=== PATIENT | male | born 1955 | race Caucasian/White ===

== ENCOUNTER 2016-04-06 15:20 | Emergency (ER) | payer MEDICAID ==
--- NOTE | 2016-04-06 15:26 | EDPHY ---
H & P Time Seen by Provider: 04/06/16 15:25 HPI/ROS: CHIEF COMPLAINT: Alcohol intoxication HISTORY OF PRESENT ILLNESS: EMS was called to private residence by the patient' s found him intoxicated after having drunk a lot of vodka. He could walk. On arrival he just admits to feeling bad but no other acute medical complaints. REVIEW OF SYSTEMS: Eye: no change in vision ENT: no sore throat Cardiac: no chest pain or syncope Pulmonary: no cough or SOB Abdomen: Nausea and vomiting earlier, no diarrhea or abdominal pain. Musculoskeletal: no back pain Skin: no rash Neuro: no headache Constitutional: no fever : no urinary symptoms A comprehensive 10 point review of systems is otherwise negative aside from elements mentioned in the history of present illness. PAST MEDICAL HISTORY: H/P dated 03/27/2011 reviewed by myself; includes alcoholism Social history: Recent vodka, General Appearance: Alert and conversant, cooperative. Eyes: No scleral icterus. ENT, Mouth: Normal mucous membranes. Respiratory: Normal respiratory effort, breath sounds equal, lungs are clear to auscultation. Cardiovascular: Regular rate and rhythm. Gastrointestinal: Abdomen is soft and non tender. Neurological: Alert and oriented x3. Slightly slurred speech. Face symmetric, normal movement and sensation in all extremities. Skin: Warm and dry, no rashes. Musculoskeletal: No peripheral edema and no joint swelling. Psychiatric: Not agitated. Tearful, denies suicidal ideation. Emergency Department course/MDM: Clinical presentation consistent with alcohol intoxication and depression. 1620: Ambulatory, no medical complaints, denies suicidal ideation, stable for detox. Smoking Status: Light smoker Constitutional: Initial Vital Signs Temperature (C) 36.7 C 04/06/16 15:28 Heart Rate 102 H 04/06/16 15:28 Respiratory Rate 16 04/06/16 15:28 Blood Pressure 151/94 H 04/06/16 15:28 O2 Sat (%) 96 04/06/16 15:28 O2 Delivery Mode Room Air Allergies/Adverse Reactions: Penicillins Allergy (Unknown, Verified 11/17/15 15:59) Home Medications: Medication Instructions Recorded NK [No Known Home Meds] 04/27/15 Medical Decision Making Differential Diagnosis: Differential diagnosis considered for altered mental status including but not limited to hypoglycemia, infectious process, electrolyte abnormality, head injury and intoxicants. - Data Points Laboratory Results: Laboratory Results 04/06/16 15:20 04/06/16 15:20 04/06/16 04/06/16 15:20 15:20 WBC 4.97 10^3/uL 10^3/uL (3.80-9.50) RBC 5.02 10^6/uL 10^6/uL (4.40-6.38) Hgb 16.5 g/dL g/dL (13.7-17.5) Hct 45.7 % % (40.0-51.0) MCV 91.0 fL fL (81.5-99.8) MCH 32.9 pg pg (27.9-34.1) MCHC 36.1 g/dL g/dL (32.4-36.7) RDW 14.3 % % (11.5-15.2) Plt Count 251 10^3/uL 10^3/uL (150-400) MPV 9.6 fL fL (8.7-11.7) Neut % (Auto) 60.1 % % (39.3-74.2) Lymph % (Auto) 26.2 % % (15.0-45.0) Mcminn % (Auto) 12.9 % % (4.5-13.0) Eos % (Auto) 0.2 % L % (0.6-7.6) Baso % (Auto) 0.2 % L % (0.3-1.7) Nucleat RBC Rel Count 0.0 % % (0.0-0.2) Absolute Neuts (auto) 2.99 10^3/uL 10^3/uL (1.70-6.50) Absolute Lymphs (auto) 1.30 10^3/uL 10^3/uL (1.00-3.00) Absolute Monos (auto) 0.64 10^3/uL 10^3/uL (0.30-0.80) Absolute Eos (auto) 0.01 10^3/uL L 10^3/uL (0.03-0.40) Absolute Basos (auto) 0.01 10^3/uL L 10^3/uL (0.02-0.10) Absolute Nucleated RBC 0.00 10^3/uL 10^3/uL (0-0.01) Immature Gran % 0.4 % % (0.0-1.1) Immature Gran # 0.02 10^3/uL 10^3/uL (0.00-0.10) Sodium 142 mEq/L mEq/L (134-144) Potassium 3.8 mEq/L mEq/L (3.5-5.2) Chloride 98 mEq/L mEq/L (97-110) Carbon Dioxide 25 mEq/l mEq/l (22-31) Anion Gap 19 mEq/L H mEq/L (8-16) BUN 15 mg/dL mg/dL (7-23) Creatinine 0.9 mg/dL mg/dL (0.7-1.3) Estimated GFR > 60 Glucose 96 mg/dL mg/dL (70-100) Calcium 10.0 mg/dL mg/dL (8.5-10.4) Salicylates < 1.0 mg/dL L mg/dL (2.0-20.0) Acetaminophen < 10 mcg/mL L mcg/mL (10.0-30.0) Ethyl Alcohol 454 mg/dL H* mg/dL (0-10) Departure - Departure Disposition: Home, Routine, Self-Care Clinical Impression: Alcoholic intoxication Qualifiers: Complication of substance-induced condition: uncomplicated Qualified Code(s): F10.120 - Alcohol abuse with intoxication, uncomplicated Condition: Good Instructions: Alcohol Intoxication (ED) Referrals: Patient,NotPresent [Unknown] - As per Instructions [facility],. [Clinic] - As per Instructions
[2016-04-06 15:30] VITALS: BP 151/94; PULSE 102; RESP 16; TEMP 98.1; O2SAT 96
[2016-04-06 15:43] LABS: % IMMATURE GRANULYOCYTES 0.4 % (0.0-1.1); ABSOLUTE IMMATURE GRANULOCYTES 0.02 10^3/uL (0.00-0.10); ADD DIFF? NO; ADD MORPH? NO; ADD SCAN? NO; ATYPICAL LYMPHOCYTE FLAG 0 (0-99); FRAGMENT RBC FLAG 0 (0-99); HEMATOCRIT 45.7 % (40.0-51.0); HEMOGLOBIN 16.5 g/dL (13.7-17.5); LEFT SHIFT FLG 0 (0-99); LIPEMIA HEMOLYSIS FLAG 90 (0-99); MEAN CELL HEMOGLOBIN 32.9 pg (27.9-34.1); MEAN CELL HEMOGLOBIN CONCENTR. 36.1 g/dL (32.4-36.7); MEAN PLATELET VOLUME 9.6 fL (8.7-11.7); PLATELET CLUMPS FLAG 0 (0-99); PLATELET COUNT 251 10^3/uL (150-400); RED BLOOD CELL COUNT 5.02 10^6/uL (4.40-6.38); RED CELL DISTRIBUTION WIDTH 14.3 % (11.5-15.2)
[2016-04-06 16:00] LABS: ANION GAP 19 mEq/L (8-16); CARBON DIOXIDE 25 mEq/l (22-31); CHLORIDE 98 mEq/L (97-110); CREATININE 0.9 mg/dL (0.7-1.3); GLOMERULAR FILTRATION RATE > 60; GLUCOSE 96 mg/dL (70-100); POTASSIUM 3.8 mEq/L (3.5-5.2); SALICYLATE < 1.0 mg/dL (2.0-20.0); SODIUM 142 mEq/L (134-144)
[2016-04-06 16:15] LABS: ETHANOL SERUM 454 mg/dL (0-10)
== END 2016-04-06 16:45 | disposition home or self-care (01) ==
LOC: EDUNIT#
DX: F10.120 Alcohol abuse with intoxication, uncomplicated (principal); F17.200 Nicotine dependence, unspecified, uncomplicated
CPT/HCPCS: G0480

== ENCOUNTER 2016-06-16 17:52 | Emergency (ER) | payer MEDICAID ==
[2016-06-16 18:07] VITALS: TEMP 98.2
[2016-06-16] MEDS ORDERED: ONDANSETRON 4 MG/2 ML VIAL ONE (18:30)
[2016-06-16] MEDS ORDERED: ONDANSETRON 4 MG/2 ML VIAL IVP ONE (18:30)
[2016-06-16] MEDS ORDERED: NS 1,000 ML IV ONE ×2 (18:30→20:31)
[2016-06-16] MEDS ORDERED: LORazepam 2 MG/ML INJ IVP ONE (18:30)
--- NOTE | 2016-06-16 18:36 | EDPHY ---
H & P Smoking Status: Light smoker Time Seen by Provider: 06/16/16 18:04 HPI/ROS: CHIEF COMPLAINT: Left flank pain, vomiting HISTORY OF PRESENT ILLNESS: 60-year-old male presents to the emergency department complaining of severe left flank pain and vomiting. The patient states 3 days ago he was in his kitchen and slipped and fell back hitting his left flank on the corner of a cabinet. His girlfriend was present. He did not lose consciousness. He did not his head. Denies neck pain. Denies chest pain. He does have pain when he takes a big deep breath however especially in the left flank area. He states that he has had ongoing pain since he fell however today he has had more acute pain. He now has vomited a few times. He does not know if the pain is making him vomit. He denies abdominal pain. Denies injury to upper lower extremities. Denies headache. He does admit to drinking 1 pt per day and has not drank in a few days. He does not know if the vomiting is from that. REVIEW OF SYSTEMS: Constitutional: No fever, no chills. Eyes: No double or blurry vision. ENT: No sore throat. Respiratory: No cough, no shortness of breath. Cardiac: No chest pain. Gastrointestinal: No abdominal pain, vomiting or diarrhea. Genitourinary: No dysuria. No reported hematuria. Musculoskeletal: Left flank pain as above. No neck pain. Skin: No rashes. Neurological: No headache. (Kate Goyal) Past Medical/Surgical History: Alcoholism (Jay Jay,Kate M) Social History: Single (Kate Goyal) Physical Exam: General Appearance: Alert, no distress. No visible signs of trauma to his head. Mentating normally and answering questions appropriately. 97% on room air. Eyes: Pupils equal and round. Extraocular motions are all intact. ENT: Mouth: Mucous membranes dry. Respiratory: No wheezing, rhonchi, or rales, lungs are clear to auscultation. Cardiovascular: Regular rate and rhythm. Tachycardic. Gastrointestinal: Abdomen is soft and nontender, no masses, no rebound or guarding, bowel sounds normal. Neurological: Alert and oriented x 3, cranial nerves II through XII grossly intact Skin: Area of ecchymosis noted to the left flank. Tender to palpate the left flank. Warm and dry, no rashes. Musculoskeletal: Nontender to palpate along the cervical, thoracic or lumbar spine. Neck is supple. Tenderness with palpation in the left flank area as above. No palpable crepitus or other bony abnormality. Extremities: Full range of motion and no peripheral edema. Psychiatric: Patient is oriented X 3, there is no agitation. (VanessaleiaKate Tse) Constitutional: Initial Vital Signs Temperature (C) 36.8 C 06/16/16 18:05 Heart Rate 132 H 06/16/16 18:05 Respiratory Rate 22 H 06/16/16 18:05 Blood Pressure 154/106 H 06/16/16 18:05 O2 Sat (%) 97 06/16/16 18:05 O2 Delivery Mode Room Air Allergies/Adverse Reactions: Penicillins Allergy (Unknown, Verified 06/16/16 18:05) Home Medications: Medication Instructions Recorded NK [No Known Home Meds] 04/27/15 Medical Decision Making - Diagnostics Imaging: I viewed and interpreted images myself ED Course/Re-evaluation: 60-year-old male presents to the emergency department after mechanical fall 3 days ago. He has ecchymosis noted in the left flank. He has reproducible pain with palpation. Urinalysis does not reveal any gross hematuria. On microscopic examination, there was no blood. Chest x-rays unremarkable. CT imaging of the abdomen and pelvis was ordered after discussing the case with Dr. Leander Townsend, secondary supervising physician. CT imaging of the abdomen and pelvis reveal left 11th rib fracture. No intra- abdominal injury. The patient was reassured. The patient has a history of alcoholism and is likely exhibiting symptoms of alcohol withdrawal. He is tachycardic. He received IV normal saline, IV Ativan and Zofran. He was feeling much better. He is requesting to be discharged home. (Kate Goyal) I did not see this patient while he was in the emergency department. However his care was discussed with the PA while the patient was in the department. I agree with treatment plan and management (Leander Townsend) Differential Diagnosis: Including but not limited to rib fracture, contusion, intra-abdominal injury, compression fractures, pneumothorax (Kate Goyal) - Data Points Medications Given: Discontinued Medications Fentanyl (Sublimaze) 100 mcg IVP EDNOW ONE Stop: 06/16/16 20:52 Last Admin: 06/16/16 20:52 Dose: 100 mcg Sodium Chloride (Ns) 1,000 mls @ 0 mls/hr IV ONCE ONE PRN Reason: Wide Open Stop: 06/16/16 18:31 Last Admin: 06/16/16 18:49 Dose: 1,000 mls Sodium Chloride (Ns) 1,000 mls @ 0 mls/hr IV ONCE ONE PRN Reason: Wide Open Stop: 06/16/16 20:32 Last Admin: 06/16/16 20:32 Dose: 1,000 mls Lorazepam (Ativan Injection) 1 mg IVP EDNOW ONE Stop: 06/16/16 18:31 Last Admin: 06/16/16 18:49 Dose: 1 mg Ondansetron HCl (Zofran) 4 mg IVP EDNOW ONE Stop: 06/16/16 18:31 Last Admin: 06/16/16 18:50 Dose: 4 mg Departure - Departure Disposition: Home, Routine, Self-Care Clinical Impression: Alcohol withdrawal Qualifiers: Complication of substance-induced condition: uncomplicated Qualified Code(s): F10.230 - Alcohol dependence with withdrawal, uncomplicated Rib fracture Qualifiers: Encounter type: initial encounter Rib fracture type: single rib Fracture type: closed Laterality: left Qualified Code(s): S22.32XA - Fracture of one rib, left side, initial encounter for closed fracture Condition: Good Instructions: Rib Fracture (ED), Alcohol Withdrawal (ED) Additional Instructions: Clear liquids and slowly advance diet as tolerated. Referrals: Dexter Martell DO [Doctor of Osteopathy] - 2-3 days, call for appt. (Primary care provider provider relations manager) Stand Alone Forms: Work Limited Duty
[2016-06-16 19:53] LABS: COLOR YELLOW; LEUKOCYTE ESTERASE,URINE NEGATIVE (NEGATIVE); NITRITE,URINE NEGATIVE (NEGATIVE)
[2016-06-16 20:06] LABS: MUCUS 2+ /lpf (NONE-1+)
[2016-06-16] MEDS ORDERED: fentaNYL 100 MCG/2 ML INJ ONE (20:44)
[2016-06-16] MEDS ORDERED: IOPAMIDOL (ISOVUE-300) 100 ML BTL IV ONE (20:45)
[2016-06-16] MEDS ORDERED: fentaNYL 100 MCG/2 ML INJ IVP ONE (20:51)
[2016-06-16 20:53] VITALS: RESP 18
[2016-06-16 22:06] VITALS: BP 171/102; PULSE 116; O2SAT 98
== END 2016-06-16 22:05 | disposition home or self-care (01) ==
DX: S22.32XA Fracture of one rib, left side, initial encounter for closed fracture (principal); F10.230 Alcohol dependence with withdrawal, uncomplicated; F17.200 Nicotine dependence, unspecified, uncomplicated; W01.198A Fall on same level from slipping, tripping and stumbling with subsequent striking against other object, initial encounter; Y92.000 Kitchen of unspecified non-institutional (private) residence as the place of occurrence of the external cause
CPT/HCPCS: 82947-QW; 96374; J2060; J2405; J3010; Q9967

== ENCOUNTER 2016-07-16 06:08 | Emergency (ER) | payer MEDICAID ==
[2016-07-16 06:12] VITALS: RESP 16; TEMP 98.1
--- NOTE | 2016-07-16 06:20 | EDPHY ---
H & P Stated Complaint: pt spouse thinks pt may have etoh poisoning/od Source: Patient - Personal History Tetanus Vaccine Date: 2009 - Medical/Surgical History Hx Asthma: No Hx Chronic Respiratory Disease: No Hx Diabetes: No Hx Cardiac Disease: Yes Hx Renal Disease: No Hx Cirrhosis: No Hx Alcoholism: Yes Hx HIV/AIDS: No Hx Splenectomy or Spleen Trauma: No Other PMH: depression, ETOH abuse, hypertension - Social History Smoking Status: Light smoker HPI/ROS: HPI CHIEF COMPLAINT: Alcohol Intoxication HISTORY OF PRESENT ILLNESS: Patient 52-year-old male, presents emergency room by EMS from his private residence after his significant other called 911 out of concern that he was too intoxicated with alcohol and that he could not walk. Patient presents emergency room he has no complaints he is intoxicated with alcohol. He denies pain anywhere. He is able to answer my questions. He does smell of alcohol slurring his speech. EMS reports that he was unable to walk and needed great assistance getting to the stretcher. Upon arrival here in the emergency room he has normal vital signs his breath alcohol is 403 It is at 6:30 a.m.. Past Medical History: Alcoholism Past Surgical History: Denies recent surgery Social History: Daily alcohol use, denies drugs or tobacco Family History: Noncontributory ROS REVIEW OF SYSTEMS: A comprehensive 10 point review of systems is otherwise negative aside from elements mentioned in the history of present illness. Exam Constitutional Intoxicated, triage nursing summary reviewed, vital signs reviewed, Sleepy, smells of alcohol Eyes normal conjunctivae and sclera, horizontal beating nystagmus consistent acute alcohol intoxication, otherwise pupils equal and react to light HENT normal inspection, atraumatic, moist mucus membranes, no epistaxis, neck supple/ no meningismus, no raccoon eyes. Respiratory clear to auscultation bilaterally, normal breath sounds, no respiratory distress, no wheezing. Cardiovascular rate normal, regular rhythm, no murmur, no edema, distal pulses normal. Gastrointestinal soft, non-tender, no rebound, no guarding, normal bowel sounds, no distension, no pulsatile mass. Genitourinary no CVA tenderness. Musculoskeletal no midline vertebral tenderness, full range of motion, no calf swelling, no tenderness of extremities, no meningismus, good pulses, neurovascularly intact. Skin pink, warm, & dry, no rash, skin atraumatic. Neurologic sleepy, intoxicated with alcohol,, alert and oriented x 3, AAOx3, moves all 4 extremities equally, motor intact, sensory intact, CN II-XII intact , , normal vision, normal speech. Psychiatric normal mood/affect. Heme/Lymph/Immune no lymphadenopathy. Differential Diagnosis: Includes but is not limited to in a particular order acute alcohol intoxication, alcohol abuse, dehydration, electrolyte abnormality , nausea vomiting from acute alcohol intoxication Medical Decision Making: Plan for this patient monitor on a vp construction, breath alcohol and will monitor him for sobriety. Re-evaluation: (Jossue Farfan) Constitutional: Initial Vital Signs Temperature (C) 36.7 C 07/16/16 06:11 Heart Rate 98 07/16/16 06:11 Respiratory Rate 16 07/16/16 06:11 Blood Pressure 139/96 H 07/16/16 06:11 O2 Sat (%) 94 07/16/16 06:11 O2 Delivery Mode Nasal Cannula O2 (L/minute) 2 Allergies/Adverse Reactions: Penicillins Allergy (Unknown, Verified 07/16/16 06:12) Home Medications: Medication Instructions Recorded NK [No Known Home Meds] 04/27/15 Medical Decision Making ED Course/Re-evaluation: I assumed care of the patient at 7 o'clock in the morning pending clinical sobriety. I re-evaluated the patient at 10:00 a.m.. He is now sober and ambulatory. The patient clearly is a chronic alcoholic. I reviewed all of his past medical records. I had a long discussion with the patient about his presentation today. He is adamant about the fact that he was not suicidal. The patient would [facility]. Patient will be sent there via cab. He has no significant hypoxemia or altered mental status. He will be provided a prepack for Librium as he is certainly at risk for alcohol withdrawal. (Baltazar Weir) Differential Diagnosis: Differential diagnosis considered includes alcohol intoxication, suicidal ideation, overdose, metabolic abnormality, hypoglycemia (Baltazar Weir) Departure - Departure Disposition: Home, Routine, Self-Care Clinical Impression: Alcoholic intoxication Qualifiers: Complication of substance-induced condition: uncomplicated Qualified Code(s): F10.120 - Alcohol abuse with intoxication, uncomplicated Condition: Good Instructions: Alcohol Intoxication (ED) Referrals: [facility] [Outside] - As per Instructions
[2016-07-16] MEDS ORDERED: CHLORDIAZEPOXIDE 25MG PREPK#6 BTL TAKEHOME ONE (09:44)
[2016-07-16 09:54] VITALS: BP 133/85; PULSE 100; O2SAT 92
== END 2016-07-16 10:22 | disposition home or self-care (01) ==
LOC: EDUNIT#
DX: F10.120 Alcohol abuse with intoxication, uncomplicated (principal); I10 Essential (primary) hypertension; F17.200 Nicotine dependence, unspecified, uncomplicated

== ENCOUNTER 2016-07-16 19:31 | Inpatient (IN) | payer MEDICAID ==
[2016-07-16] MEDS ORDERED: LORazepam 2 MG/ML INJ ONE (19:35)
[2016-07-16] MEDS ORDERED: LORazepam 2 MG/ML INJ IVP ONE ×2 (19:36→21:33)
[2016-07-16] MEDS ORDERED: NS 1,000 ML IV ONE ×2 (19:36→19:48)
--- NOTE | 2016-07-16 19:38 | EDPHY ---
H & P Time Seen by Provider: 07/16/16 19:37 HPI/ROS: CHIEF COMPLAINT: Acute alcohol withdrawal HISTORY OF PRESENT ILLNESS: 60-year-old male presents to the emergency department with acute alcohol withdrawal. The patient is a daily drinker and he last drank alcohol yesterday. He was seen in the emergency department yesterday and was discharged to the [facility]. He presents now to the emergency department by ambulance feeling very shaky and withdrawing from alcohol. The patient has had withdrawal seizures. He denies any reported trauma. No seizure today. He denies any other substance abuse. He denies chest pain or difficulty breathing. He does feel nauseous. No neck or back pain. REVIEW OF SYSTEMS: Constitutional: No fever, no chills. Eyes: No double or blurry vision. ENT: No sore throat. Respiratory: No cough, no shortness of breath. Cardiac: No chest pain. Gastrointestinal: No abdominal pain, vomiting or diarrhea. Genitourinary: No dysuria. Musculoskeletal: No neck or back pain. Skin: No rashes. Neurological: No headache. Past Medical/Surgical History: Alcoholism, alcohol withdrawal seizures Social History: Single Smoking Status: Light smoker Physical Exam: General Appearance: Alert, no distress. Tremulous. Eyes: Pupils equal and round. Extraocular motions are all intact. ENT: Mouth: Mucous membranes moist. Respiratory: No wheezing, rhonchi, or rales, lungs are clear to auscultation. Cardiovascular: Regular rate and rhythm. Tachycardic. Gastrointestinal: Abdomen is soft and nontender, no masses, no rebound or guarding, bowel sounds normal. Neurological: Alert and oriented x 3, cranial nerves II through XII grossly intact Skin: Warm and dry, no rashes. Musculoskeletal: Nontender to palpate along the cervical, thoracic or lumbar spine. Neck is supple. Extremities: Full range of motion and no peripheral edema. Psychiatric: Patient is oriented X 3, there is no agitation. Constitutional: Initial Vital Signs Temperature (C) 36.9 C 07/16/16 19:37 Heart Rate 119 H 07/16/16 19:37 Respiratory Rate 20 07/16/16 19:37 Blood Pressure 165/113 H 07/16/16 19:37 O2 Sat (%) 98 07/16/16 19:37 O2 Delivery Mode Room Air Allergies/Adverse Reactions: Penicillins Allergy (Unknown, Verified 07/16/16 06:12) Home Medications: Medication Instructions Recorded NK [No Known Home Meds] 04/27/15 Medical Decision Making ED Course/Re-evaluation: 60-year-old male presents to this emergency department by EMS with acute alcohol withdrawal. The patient is a known alcoholic and last drank alcohol yesterday patient has a history of alcohol withdrawal seizures. IV was established and patient had normal chemistries. He received IV normal saline as well as a total of 3 mg of IV Ativan. Patient was feeling less nauseous and was feeling better and was given 50 mg of Librium p.o.. Patient was re-evaluated multiple times. At 12:15 p.m. the patient was still very tachycardic at 125 and was beginning to feel tremulous again. Patient was given additional 2 mg of IV Ativan and IV normal saline. This patient will be admitted to the hospital with acute alcohol withdrawal. I do not think that he is medically cleared to go back to the [facility]. The patient will be admitted to the step-down unit with acute alcohol withdrawal. He is a great risk for seizures. Differential Diagnosis: Including but not limited to acute alcohol withdrawal, dehydration, seizures, electrolyte abnormality - Data Points Laboratory Results: Laboratory Results 07/16/16 22:30 07/16/16 22:30 Sodium 137 mEq/L mEq/L (134-144) Potassium 4.1 mEq/L mEq/L (3.5-5.2) Chloride 101 mEq/L mEq/L (97-110) Carbon Dioxide 26 mEq/l mEq/l (22-31) Anion Gap 10 mEq/L mEq/L (8-16) BUN 10 mg/dL mg/dL (7-23) Creatinine 0.7 mg/dL mg/dL (0.7-1.3) Estimated GFR > 60 Glucose 78 mg/dL mg/dL (70-100) Calcium 8.5 mg/dL mg/dL (8.5-10.4) Medications Given: Discontinued Medications Chlordiazepoxide HCl (Librium) 50 mg PO EDNOW ONE Stop: 07/16/16 22:34 Last Admin: 07/16/16 22:36 Dose: 50 mg Sodium Chloride (Ns) 1,000 mls @ 0 mls/hr IV ONCE ONE PRN Reason: Wide Open Stop: 07/16/16 19:37 Last Admin: 07/16/16 19:40 Dose: 1,000 mls Sodium Chloride (Ns) 1,000 mls @ 0 mls/hr IV ONCE ONE PRN Reason: Wide Open Stop: 07/16/16 19:49 Last Admin: 07/16/16 19:45 Dose: 1,000 mls Lorazepam (Ativan Injection) 2 mg IVP EDNOW ONE Stop: 07/16/16 19:37 Last Admin: 07/16/16 19:40 Dose: 2 mg Lorazepam (Ativan Injection) 1 mg IVP EDNOW ONE Stop: 07/16/16 21:34 Last Admin: 07/16/16 21:33 Dose: 1 mg Ondansetron HCl (Zofran) 4 mg IVP EDNOW ONE Stop: 07/16/16 19:49 Last Admin: 07/16/16 19:50 Dose: 4 mg Ondansetron HCl (Zofran) 4 mg IVP EDNOW ONE Stop: 07/16/16 21:34 Last Admin: 07/16/16 21:34 Dose: 4 mg Departure - Departure Disposition: [facility] Clinical Impression: Alcohol withdrawal Qualifiers: Complication of substance-induced condition: uncomplicated Qualified Code(s): F10.230 - Alcohol dependence with withdrawal, uncomplicated Condition: Good
[2016-07-16] MEDS ORDERED: ONDANSETRON 4 MG/2 ML VIAL ONE (19:39)
[2016-07-16] MEDS ORDERED: ONDANSETRON 4 MG/2 ML VIAL IVP ONE ×2 (19:48→21:33)
[2016-07-16] MEDS ORDERED: chlordiazePOXIDE 25 MG CAP PO ONE (22:33)
[2016-07-16 22:48] LABS: ANION GAP 10 mEq/L (8-16); CALCIUM 8.5 mg/dL (8.5-10.4); CARBON DIOXIDE 26 mEq/l (22-31); CHLORIDE 101 mEq/L (97-110); CREATININE 0.7 mg/dL (0.7-1.3); GLOMERULAR FILTRATION RATE > 60; GLUCOSE 78 mg/dL (70-100); POTASSIUM 4.1 mEq/L (3.5-5.2); SODIUM 137 mEq/L (134-144)
[2016-07-17] MEDS ORDERED: LORazepam 2 MG/ML INJ ONE (00:13)
[2016-07-17] MEDS ORDERED: LORazepam 2 MG/ML INJ IVP ONE (00:14)
[2016-07-17] MEDS ORDERED: NS 1,000 ML IV ONE (00:14)
[2016-07-17] MEDS ORDERED: ONDANSETRON 4 MG/2 ML VIAL ONE (00:22)
[2016-07-17] MEDS ORDERED: ONDANSETRON 4 MG/2 ML VIAL IVP ONE (00:26)
[2016-07-17] MEDS ORDERED: PROMETHAZINE HCL 25 MG/ML INJ IVP PRN (00:31)
[2016-07-17] MEDS ORDERED: ONDANSETRON DISINTEGRATING 4 MG TAB PO PRN (00:31)
[2016-07-17] MEDS ORDERED: ONDANSETRON 4 MG/2 ML VIAL IVP PRN (00:31)
[2016-07-17] MEDS ORDERED: PROMETHAZINE HCL 25 MG TAB PO PRN (00:31)
[2016-07-17] MEDS ORDERED: THIAMINE HCL 500 MG in NS 100 ML IM ONE (00:33)
[2016-07-17] MEDS ORDERED: NS 1,000 ML IV SCH (00:45)
--- NOTE | 2016-07-17 00:50 | PDGENHP ---
History and Physical - Chief Complaint alcohol withdrawal - History of Present Illness Patient is a 60 year old male with depression, chronic alcohol use, h/o alcohol withdrawal seizure (last > 10 years ago) who was sent to the ED from [facility] for acute alcohol withdrawal. Patient was seen in the ED on the morning of 07/16 for acute alcohol intoxication, with ETOH level at that time > 400. He was observed through his acute intoxication and then was transferred to the [facility] for detox/ rehab management. Over the course of the day, however, patient developed continually worsening symptoms of withdrawal. He had significant tremor, tachycardia, hypertension, so he was sent to the ED for further evaluation and management. Of note, patient describes his alcohol use as episodes of binging; for the past 1 week he has been drinking at least 1 pint of vodka per day. He states he has been depressed lately, as he recently lost his job and expenses are piling up. He has been self-medicating with alcohol. He has not followed with a psychiatrist for his depression since his previous psychiatrist retired > 5 years ago. He does report that he occasionally has thoughts of self harm, but has not had any attempts and does not have a plan. On arrival to the ED, patient was afebrile, but significantly tachycardic, hypertensive. He was given 3L IV fluid hydration, PO librium and several doses of IV ativan, but still remained tachycardic. Given the severity of his withdrawal symptoms, he was then admitted to the hospitalist service for further management. History Information - Allergies/Home Medication List Allergies/Adverse Reactions: Penicillins Allergy (Unknown, Verified 07/16/16 06:12) Home Medications: NK [No Known Home Meds] 04/27/15 [Last Taken Unknown] I have personally reviewed and updated: family history, medical history, social history, surgical history - Past Medical History Additional medical history: Depression. chronic etoh use - Surgical History Additional surgical history: L thigh surgery - Family History Positive for: non-pertinent - Social History Smoking Status: Light smoker (3-4 cigarettes/day) Alcohol Use: Heavy (1 pint vodka/day) Drug Use: None Additional social history: Patient currently lives with his girlfriend; recently lost his job at home [employer]. Originally from [place], no immediate family in [place] Review of Systems ROS: 10pt was reviewed & negative except for what was stated in HPI & below Physical Exam Temp Pulse Resp BP Pulse Ox 36.9 C 120 H 20 156/110 H 94 07/16/16 19:37 07/17/16 00:29 07/17/16 00:29 07/17/16 00:29 07/17/16 00:29 Constitutional: no apparent distress, appears nourished, other (tremulous) Eyes: PERRL, anicteric sclera, EOMI, other (tongue fasiculations) Ears, Nose, Mouth, Throat: hearing normal, ears appear normal, no oral mucosal ulcers, oral thrush, dry mucous membranes Cardiovascular: no murmur, rub, or gallop, pulses symmetric bilaterally, tachycardia, No JVD, No edema Peripheral Pulses: 2+: dorsalis-pedis (R), dorsalis-pedis (L) Respiratory: no respiratory distress, no rales or rhonchi, clear to auscultation Gastrointestinal: normoactive bowel sounds, soft, non-tender abdomen, no palpable masses, No guarding, No rebound Genitourinary: no bladder fullness, no bladder tenderness Skin: warm, normal color, no rashes or abrasions, no fluctuance, no induration, No mottled Musculoskeletal: full muscle strength, no muscle tenderness, normal joint ROM, no joint effusions Neurologic: AAOx3, sensation intact bilaterally, CN II-XII Intact, other ( coarse distal tremor in all extremities), No weakness, No numbness, No asterixes , No facial droop Psychiatric: interacting appropriately, not anxious, not encephalopathic, thought process linear Lab Data & Imaging Review 07/16/16 22:30 Sodium 137 mEq/L (134-144) 07/16/16 22:30 Potassium 4.1 mEq/L (3.5-5.2) 07/16/16 22:30 Chloride 101 mEq/L (97-110) 07/16/16 22:30 Carbon Dioxide 26 mEq/l (22-31) 07/16/16 22:30 Anion Gap 10 mEq/L (8-16) 07/16/16 22:30 BUN 10 mg/dL (7-23) 07/16/16 22:30 Creatinine 0.7 mg/dL (0.7-1.3) 07/16/16 22:30 Estimated GFR > 60 07/16/16 22:30 Glucose 78 mg/dL (70-100) 07/16/16 22:30 Calcium 8.5 mg/dL (8.5-10.4) 07/16/16 22:30 Magnesium 1.2 mg/dL (1.6-2.3) L 07/16/16 23:35 Assessment & Plan Assessment: Patient is a 60 year old male with chronic etoh use, history of severe alcohol withdrawal and depression who presents to the ED from the [facility] in acute alcohol withdrawal. Plan: # acute alcohol withdrawal Last ETOH intake was about 24 hours ago and patient in full withdrawal on presentation today. Exhibiting tachycardia, tremor, anxiety. He does report a previous history of withdrawal seizure. Given this and the severity of his presenting symptoms, will monitor in step down unit. - CIWA protocol, with ativan q30min prn - check and replete electrolytes, mg, phos - supplement thiamine, folate, MVN - pepcid IV BID, zofran for symptomatic treatment # nausea, vomiting Likely related to acute withdrawal, as per above. Will check LFTs, lipase and treat for symptom relief. # depression patient reports mood is depressed and does occasionally have suicidal ideations , but denies any attempt or plan for attempt. He has not followed with a psychiatrist/therapist since his retired over 5 years ago. Will refer to psych once medically stabilized. # dispo: admit for inpatient stay for likely > 2 [place] stay given the severity of patient's withdrawal symptoms # gen: clear liquid diet as tolerated DVT ppx: lovenox Full code
[2016-07-17] MEDS ORDERED: MAGNESIUM SULF 2 GM/WATER 50 ML IV ONE (00:51)
[2016-07-17] MEDS ORDERED: THIAMINE HCL 500 MG in NS 100 ML IV ONE (01:30)
[2016-07-17] MEDS ORDERED: MAGNESIUM SULF 2 GM/WATER 50 ML BAG IV ONE (01:32)
[2016-07-17] MEDS: ACETAMINOPHEN 325 MG TAB PO PRN (01:40)
[2016-07-17] MEDS: LORazepam 2 MG/ML INJ IVP PRN ×9 (01:41→18:42)
[2016-07-17 02:16] LABS: % IMMATURE GRANULYOCYTES 0.2 % (0.0-1.1); ABSOLUTE IMMATURE GRANULOCYTES 0.01 10^3/uL (0.00-0.10); ABSOLUTE NRBC COUNT 0.02 10^3/uL (0-0.01); ADD DIFF? NO; ADD MORPH? NO; ADD SCAN? NO; ATYPICAL LYMPHOCYTE FLAG 0 (0-99); FRAGMENT RBC FLAG 0 (0-99); HEMOGLOBIN 16.6 g/dL (13.7-17.5); LEFT SHIFT FLG 0 (0-99); LIPEMIA HEMOLYSIS FLAG 90 (0-99); MEAN CELL HEMOGLOBIN 32.7 pg (27.9-34.1); MEAN CELL HEMOGLOBIN CONCENTR. 34.6 g/dL (32.4-36.7); MEAN CELL VOLUME 94.7 fL (81.5-99.8); NRBC-AUTO% 0.4 % (0.0-0.2); PLATELET CLUMPS FLAG 20 (0-99); PLATELET COUNT 165 10^3/uL (150-400); RED BLOOD CELL COUNT 5.07 10^6/uL (4.40-6.38); RED CELL DISTRIBUTION WIDTH 15.7 % (11.5-15.2)
[2016-07-17 02:21] LABS: ALBUMIN 4.2 g/dL (3.5-5.0); BILIRUBIN,TOTAL 0.8 mg/dL (0.1-1.4); BILIRUBIN-CONJUGATED 0.2 mg/dL (0.0-0.5); BILIRUBIN-UNCONJUGATED 0.6 mg/dL (0.0-1.1); TOTAL PROTEIN 7.2 g/dL (6.3-8.2)
[2016-07-17] MEDS: FAMOTIDINE 20 MG/NACL 50 ML IV SCH ×2 (02:32→09:00)
--- NOTE | 2016-07-17 02:34 | CPEKG ---
Heart Rate: 114 RR Interval: 526 P-R Interval: 176 QRSD Interval: 84 QT Interval: 328 QTC Interval: 452 P [place]: 62 QRS [place]: 66 T Wave [place]: 41 EKG Severity - ABNORMAL ECG - EKG Impression: SINUS TACHYCARDIA EKG Impression: CONSIDER LEFT VENTRICULAR HYPERTROPHY Electronically Signed By: Jean Carroll 17-Jul-2016 11:00:08
[2016-07-17 02:50] LABS: PHENCYCLIDINE URINE BCH < 6 ng/ml (NEGATIVE); PHENCYCLIDINE URINE BCH NEGATIVE (NEGATIVE); TETRAHYDROCANNABINOL URINE 23 ng/mL (NEGATIVE); TETRAHYDROCANNABINOL URINE NEGATIVE (NEGATIVE)
[2016-07-17 05:25] LABS: % IMMATURE GRANULYOCYTES 0.1 % (0.0-1.1); ABSOLUTE IMMATURE GRANULOCYTES 0.01 10^3/uL (0.00-0.10); ADD DIFF? NO; ADD MORPH? NO; ADD SCAN? NO; ATYPICAL LYMPHOCYTE FLAG 0 (0-99); FRAGMENT RBC FLAG 0 (0-99); HEMATOCRIT 38.8 % (40.0-51.0); HEMOGLOBIN 13.7 g/dL (13.7-17.5); LEFT SHIFT FLG 0 (0-99); LIPEMIA HEMOLYSIS FLAG 90 (0-99); MEAN CELL HEMOGLOBIN 32.9 pg (27.9-34.1); MEAN CELL HEMOGLOBIN CONCENTR. 35.3 g/dL (32.4-36.7); MEAN CELL VOLUME 93.3 fL (81.5-99.8); MEAN PLATELET VOLUME 10.2 fL (8.7-11.7); PLATELET CLUMPS FLAG 0 (0-99); PLATELET COUNT 118 10^3/uL (150-400); RED BLOOD CELL COUNT 4.16 10^6/uL (4.40-6.38); RED CELL DISTRIBUTION WIDTH 15.2 % (11.5-15.2)
[2016-07-17] MEDS: MULTIVITAMINS 1 EACH TAB PO SCH (09:00)
[2016-07-17] MEDS: FOLIC ACID 1 MG TAB PO SCH (09:00)
[2016-07-17] MEDS: THIAMINE HCL 100 MG TAB PO SCH (09:00)
[2016-07-17 10:04] LABS: ALANINE AMINOTRANSFERASE 48 IU/L (21-72); ALBUMIN 3.7 g/dL (3.5-5.0); ALKALINE PHOSPHATASE 70 IU/L (38-126); ANION GAP 10 mEq/L (8-16); ASPARTATE AMINOTRANSFERASE 98 IU/L (17-59); BILIRUBIN,TOTAL 1.9 mg/dL (0.1-1.4); CALCIUM 8.2 mg/dL (8.5-10.4); CARBON DIOXIDE 25 mEq/l (22-31); CHLORIDE 101 mEq/L (97-110); CREATININE 0.6 mg/dL (0.7-1.3); GLOMERULAR FILTRATION RATE > 60; GLUCOSE 78 mg/dL (70-100); MAGNESIUM 1.8 mg/dL (1.6-2.3); POTASSIUM 3.7 mEq/L (3.5-5.2); SODIUM 136 mEq/L (134-144)
[2016-07-17] MEDS ORDERED: chlordiazePOXIDE 25 MG CAP PO ONE (10:45)
[2016-07-17] MEDS: ENOXAPARIN 40 MG/0.4 ML SYR SC SCH (11:32)
--- NOTE | 2016-07-17 11:34 | HOSPPROG ---
Hospitalist Progress Note Assessment/Plan: 60 yo M w alcohol withdrawal add scheduled librium sdu Objective: Vital Signs Temp Pulse Resp BP Pulse Ox 36.9 C 99 19 160/90 H 96 07/17/16 04:00 07/17/16 04:00 07/17/16 04:00 07/17/16 04:00 07/17/16 04:00 Laboratory Results 07/17/16 05:15 07/17/16 05:15 07/16/16 07/17/16 07/18/16 05:59 05:59 05:59 Intake Total 3600 Output Total 1595 Balance 2005 ICD10 Worksheet Patient Problems: Problems Problem Status Onset Alcohol withdrawal Acute Alcohol withdrawal Acute Rib fracture Acute
[2016-07-17 14:30] LABS: APTT 27.7 SEC (23.0-38.0); INR 1.02 (0.83-1.16); PROTIME(PATIENT) 13.3 SEC (12.0-15.0)
[2016-07-17] MEDS ORDERED: PROTOCOL K PHOSPHATE 1 DOSE IV PRN (17:16)
[2016-07-17] MEDS ORDERED: PROTOCOL MAGNESIUM 1 DOSE IV PRN (17:16)
[2016-07-17] MEDS ORDERED: PROTOCOL POTASSIUM 1 DOSE MISC PRN (17:16)
[2016-07-17] MEDS ORDERED: PROTOCOL CALCIUM 1 DOSE IV PRN (17:16)
--- NOTE | 2016-07-17 18:20 | GCON ---
[f rep st] CONSULTATION PULMONARY CRITICAL CARE CONSULTATION DATE OF CONSULTATION: 07/17/2016 REASON FOR CONSULTATION: Intensive care unit evaluation of alcohol withdrawal. HISTORY: The patient is a 60-year-old chronic alcoholic. He apparently binge drinks. He has had multiple visits to the emergency department since 2009 with acute alcohol intoxication and withdrawal. He was last here in March. He was in the emergency department yesterday, with a blood alcohol level of greater than 400, apparently brought in by the police? He was sent to the [facility]. There, yesterday, he exhibited increased signs and symptoms of alcohol withdrawal, and was sent back to the emergency department. He required admission, was placed on step-down unit status on the [facility] protocol. There is also a history of depression. He apparently recently lost a job. He lives with his girlfriend. He has been drinking increased amounts of vodka, up to 2 pints per day. In the emergency department, he was hypertensive, tachycardic, and tremulous. He was felt to be volume depleted. He was given intravenous fluids, IV Ativan and Librium prior to his admission. PAST MEDICAL HISTORY: Relatively unremarkable. Medical problems include only the chronic alcoholism and depression. MEDICATIONS: He takes no medications on a regular basis. PAST SURGICAL HISTORY: He has had no significant surgeries, only left thigh surgery. ALLERGIES: Penicillin. SOCIAL HISTORY: The patient lives with his girlfriend, was working at [employer]. He smokes about a quarter pack of cigarettes per day. Recent alcohol is as above. FAMILY HISTORY: Negative/noncontributory. REVIEW OF SYSTEMS: A 10-point review of systems is negative, except as mentioned above. He denies heart disease or lung disease. He denies cough or mucus, kidney problems, thromboembolic disease, thyroid or other issues. He denies exposures. He has not been homeless. PHYSICAL EXAMINATION: GENERAL APPEARANCE: Reveals a gentleman who is somewhat lethargic, but arousable, answers questions appropriately. VITAL SIGNS: Blood pressure is 132/92, heart rate 99, with sinus rhythm on the monitor. Respiratory rate is 20. On room air, saturations are 97%. He is afebrile. HEENT AND NECK: Unremarkable for lymphadenopathy or thyromegaly. Pupils are equal. There is no jugular venous distention. Mucous membranes are somewhat dry. CHEST : Clear bilaterally. Breath sounds are somewhat diminished at the bases. There are no wheezes, rales, or rhonchi. No consolidation. HEART: Borderline tachycardic. There is a systolic murmur. There are no gallops, no rubs. ABDOMEN : Soft and nontender. Bowel sounds are present, but somewhat reduced. There is no obvious organomegaly, no masses. No Palacios catheter is in place. EXTREMITIES: Unremarkable for edema, cords, or tenderness. SKIN: Warm and dry. Color is good. NEUROLOGIC: Remarkable for a mild tremor and lethargy, secondary to medications. He moves all extremities without focality. Sensation is intact. He is oriented x3. LABORATORY DATA: White blood cell count is 7400, hematocrit 38.8, platelets 112 ,000. PT and PTT were normal on admission. Basic metabolic panel is within normal limits. Potassium is 3.7, BUN 8, creatinine 0.6. Calcium is 8.2, magnesium 1.8 after replacement. Total bilirubin is 1.9, AST of 98, ALT of 48, albumin is 3.7. Blood alcohol when the patient came initially to the emergency room yesterday, 403 by breath alcohol evaluation. ASSESSMENT: 1. Alcohol withdrawal. The patient is exhibiting signs and symptoms of alcohol withdrawal, and has been admitted to the intensive care unit for treatment of this. He is receiving Librium, and, as needed, Ativan. He is not requiring Precedex. CIWA is 11. He is receiving thiamine. Electrolyte replacement protocols will be ordered. He apparently has a distant history of alcohol withdrawal seizures, but has had none on this admission, and likely this will not be a problem. He states that he is interested in quitting drinking, and apparently has quit in the past, as he was not seen in the emergency room from late 2012 to late 2014. PLAN AND RECOMMENDATIONS: The patient will be kept in the intensive care unit. He will be kept on the CIWA protocol and benzodiazepines, as well as thiamine and intravenous fluids will be continued. Diet will be advanced as tolerated. Famotidine and enoxaparin will be continued. Further plans and recommendations will be made based on his progress over the next 12-24 hours. /[id number]/MODL and [id number]/MODL [facility]
[2016-07-17] MEDS: DEXMEDETOMIDINE HCL 400 MCG in NS 100 ML IV SCH (19:20)
[2016-07-17 19:50] LABS: IONIZED CALCIUM 1.04 MMOL/L (1.12-1.30)
[2016-07-17 20:08] LABS: MAGNESIUM 1.5 mg/dL (1.6-2.3); POTASSIUM 3.2 mEq/L (3.5-5.2)
[2016-07-17] MEDS ORDERED: MAGNESIUM SULF 1 GM/DEXTROSE 100 ML IV ONE (20:46)
[2016-07-17] MEDS ORDERED: POTASSIUM CL 10 MEQ TAB PO ONE (20:46)
[2016-07-17] MEDS ORDERED: CALCIUM GLUCONATE 50 ML IV ONE (20:46)
[2016-07-17] MEDS: FAMOTIDINE 20 MG TAB PO SCH (21:04)
[2016-07-17] MEDS: chlordiazePOXIDE 25 MG CAP PO PRN (21:05)
[2016-07-18] MEDS: LORazepam 2 MG/ML INJ IVP PRN ×2 (00:56→19:58)
[2016-07-18 01:08] LABS: POTASSIUM 3.7 mEq/L (3.5-5.2)
[2016-07-18] MEDS: DEXMEDETOMIDINE HCL 400 MCG in NS 100 ML IV SCH (01:26)
[2016-07-18] MEDS: POTASSIUM Cl (KCl) 100 ML IV SCH ×2 (01:26→01:27)
[2016-07-18 05:52] LABS: IONIZED CALCIUM 1.15 MMOL/L (1.12-1.30)
[2016-07-18] MEDS: chlordiazePOXIDE 25 MG CAP PO PRN (05:52)
[2016-07-18 06:09] LABS: ANION GAP 8 mEq/L (8-16); CALCIUM 8.8 mg/dL (8.5-10.4); CARBON DIOXIDE 28 mEq/l (22-31); CHLORIDE 103 mEq/L (97-110); CREATININE 0.6 mg/dL (0.7-1.3); GLOMERULAR FILTRATION RATE > 60; GLUCOSE 118 mg/dL (70-100); MAGNESIUM 2.2 mg/dL (1.6-2.3); POTASSIUM 4.3 mEq/L (3.5-5.2); SODIUM 139 mEq/L (134-144)
--- NOTE | 2016-07-18 10:04 | HOSPPROG ---
Hospitalist Progress Note Assessment/Plan: Alcohol withdrawal - CIWA's 10-11 overnight, on Precedex. -schedule Librium -cont prn ativan -wean precedex Full code DVT PPLX - Lovenox SDU Subjective: Pt sleeping, awakens to verbal stimuli. Still a bit tremulous, confused. Objective: Vital Signs Temp Pulse Resp BP Pulse Ox 37.0 C 66 17 124/89 H 98 07/18/16 08:00 07/18/16 08:00 07/18/16 08:00 07/18/16 08:00 07/18/16 08:00 Laboratory Results 07/17/16 05:15 07/18/16 05:45 07/17/16 07/18/16 07/19/16 05:59 05:59 05:59 Intake Total 4100 3315 Output Total 1795 1350 Balance 2305 1965 PT 13.3 SEC (12.0-15.0) 07/17/16 05:15 INR 1.02 (0.83-1.16) 07/17/16 05:15 - Physical Exam Constitutional: no apparent distress Eyes: PERRL Ears, Nose, Mouth, Throat: moist mucous membranes Cardiovascular: regular rate and rhythym Respiratory: no respiratory distress Gastrointestinal: normoactive bowel sounds, soft, non-tender abdomen Skin: warm Musculoskeletal: full muscle strength ICD10 Worksheet Patient Problems: Problems Problem Status Onset Alcohol withdrawal Acute Alcohol withdrawal Acute Rib fracture Acute
[2016-07-18] MEDS: MULTIVITAMINS 1 EACH TAB PO SCH (11:22)
[2016-07-18] MEDS: ENOXAPARIN 40 MG/0.4 ML SYR SC SCH (11:22)
[2016-07-18] MEDS: THIAMINE HCL 100 MG TAB PO SCH (11:23)
[2016-07-18] MEDS: FOLIC ACID 1 MG TAB PO SCH (11:23)
[2016-07-18] MEDS: FAMOTIDINE 20 MG TAB PO SCH ×2 (11:23→21:14)
[2016-07-18] MEDS ORDERED: chlordiazePOXIDE 25 MG CAP PO SCH ×2 (13:45→16:00)
[2016-07-18] MEDS ORDERED: chlordiazePOXIDE 25 MG CAP ONE (13:53)
--- NOTE | 2016-07-18 14:01 | PDINTPN ---
Solutions Sales Executive Progress Note Assessment/Plan: Assessment: Alcohol withdrawal: Worse today, requiring increased doses of benzodiazepines as well as Precedex. Chronic alcohol abuse. He has been in the ED approximately 12 times over the last 6 or 7 years for alcohol intoxication/withdrawal Depression, possible/occasional suicidal ideations Metabolic: No issues currently identified. On replacement protocols. DVT prophylaxis: Enoxaparin. GI prophylaxis: Pepcid Plan: Continue care in the intensive care unit. Continue the CIWA protocol. Continue benzodiazepines with increased Librium given at scheduled times. Continue Precedex as needed. Will try to wean, discontinue if possible. TLC evaluation will be needed prior to discharge. No indication for an M1 of 72 hour hold at this time. Follow electrolytes 30 minutes of critical care time spent directly with the patient during this visit. Discussed with the hospitalist, nursing and the ICU multi disciplinary team. Subjective: More confused, tremulous, needed Precedex last night. On Librium and Ativan as well Objective: Vital Signs Temp Pulse Resp BP Pulse Ox 37.0 C 79 19 103/76 94 07/18/16 12:00 07/18/16 12:00 07/18/16 12:00 07/18/16 12:00 07/18/16 12:00 Laboratory Results 07/17/16 05:15 07/18/16 05:45 07/17/16 07/18/16 07/19/16 05:59 05:59 05:59 Intake Total 4100 3315 Output Total 1795 1350 Balance 2305 1965 PT 13.3 SEC (12.0-15.0) 07/17/16 05:15 INR 1.02 (0.83-1.16) 07/17/16 05:15 Laboratory Tests 07/18/16 07/18/16 05:45 05:45 Ionized Calcium 1.15 Phosphorus 3.3 D Magnesium 2.2 Physical Exam - Physical Exam General Appearance: no apparent distress, other (Somewhat sedated, arouses, answers questions. Speech a little slurred) EENT: PERRL/EOMI, other (On room air) Neck: normal inspection Respiratory: lungs clear, decreased breath sounds (At the bases), No rales, No rhonchi, No wheezing Cardiac/Chest: regular rate, rhythm (Soft systolic murmur) Abdomen: normal bowel sounds, non-tender, soft Male Genitalia: other (No Palacios catheter, using urinal) Skin: normal color, warm/dry Neuro/Psych: cognition abnormalities (Slow responses, somewhat sedated, slurred speech), disoriented to time, other (Tremor present), No oriented x 3 (Times to) ICD10 Worksheet Patient Problems: Problems Problem Status Onset Alcohol withdrawal Acute Rib fracture Acute Alcohol withdrawal Acute
[2016-07-18] MEDS: chlordiazePOXIDE 25 MG CAP PO SCH ×3 (14:15→21:15)
[2016-07-18] MEDS: FLUoxetine 20 MG CAP PO SCH (14:49)
[2016-07-18] MEDS: ACETAMINOPHEN 325 MG TAB PO PRN (19:59)
[2016-07-19 05:36] LABS: IONIZED CALCIUM 1.18 MMOL/L (1.12-1.30)
[2016-07-19 06:22] LABS: MAGNESIUM 1.6 mg/dL (1.6-2.3); POTASSIUM 4.2 mEq/L (3.5-5.2)
[2016-07-19] MEDS: MULTIVITAMINS 1 EACH TAB PO SCH (08:28)
[2016-07-19] MEDS: THIAMINE HCL 100 MG TAB PO SCH (08:28)
[2016-07-19] MEDS: ACETAMINOPHEN 325 MG TAB PO PRN (08:29)
[2016-07-19] MEDS: FAMOTIDINE 20 MG TAB PO SCH ×2 (08:29→21:45)
[2016-07-19] MEDS: FOLIC ACID 1 MG TAB PO SCH (08:29)
[2016-07-19] MEDS: chlordiazePOXIDE 25 MG CAP PO SCH ×3 (08:29→21:45)
[2016-07-19] MEDS: FLUoxetine 20 MG CAP PO SCH (08:30)
[2016-07-19] MEDS: ENOXAPARIN 40 MG/0.4 ML SYR SC SCH (08:31)
[2016-07-19] MEDS ORDERED: MAGNESIUM SULF 1 GM/DEXTROSE 100 ML IV ONE (08:43)
--- NOTE | 2016-07-19 12:02 | PDINTPN ---
Tree Specialist Progress Note Assessment/Plan: Assessment: Alcohol withdrawal: On scheduled Librium and p.r.n. Ativan. Was back on Precedex last night for increased agitation. Possibly he has a component of sundowning? Chronic alcohol abuse. He has been in the ED approximately 12 times over the last 6 or 7 years for alcohol intoxication/withdrawal Depression, possible/occasional suicidal ideations Metabolic: No issues currently identified. On replacement protocols. DVT prophylaxis: Enoxaparin. GI prophylaxis: Pepcid Plan: Continue care in the intensive care unit. Continue the CIWA protocol. Continue benzodiazepines with Librium given at scheduled times. Continue Precedex if needed. Hopefully will not need this tonight. TLC evaluation will be needed prior to discharge. No indication for an M1/72 hour hold at this time. Follow electrolytes 25 minutes of critical care time spent directly with the patient during this visit. Discussed with the hospitalist, nursing and the ICU multi disciplinary team. Subjective: Calm, lightly sedated, responsive and appropriate. Denies any problems, shortness of breath, abdominal pain, etc Objective: Vital Signs Temp Pulse Resp BP Pulse Ox 36.6 C 90 20 116/81 H 98 07/18/16 16:00 07/19/16 08:00 07/19/16 08:00 07/19/16 08:00 07/19/16 08:00 Laboratory Results 07/17/16 05:15 07/19/16 05:15 07/18/16 07/19/16 07/20/16 05:59 05:59 05:59 Intake Total 3315 3176 Output Total 1350 950 Balance 1965 2226 PT 13.3 SEC (12.0-15.0) 07/17/16 05:15 INR 1.02 (0.83-1.16) 07/17/16 05:15 Laboratory Tests 07/19/16 07/19/16 05:15 05:15 Potassium 4.2 Ionized Calcium 1.18 Phosphorus 3.5 Magnesium 1.6 Physical Exam - Physical Exam General Appearance: alert (Lightly sedated/somnolent), no apparent distress EENT: PERRL/EOMI, other (On room air) Neck: normal inspection Respiratory: lungs clear, normal breath sounds, decreased breath sounds (At bases) Cardiac/Chest: regular rate, rhythm, systolic murmur (Soft) Abdomen: normal bowel sounds, non-tender, soft Male Genitalia: other (No Palacios) Skin: normal color, warm/dry Neuro/Psych: no motor/sensory deficits, oriented x 3, other (Mild tremor. CIWA most recently at 6), No cognition abnormalities ICD10 Worksheet Patient Problems: Problems Problem Status Onset Alcohol withdrawal Acute Rib fracture Acute Alcohol withdrawal Acute
--- NOTE | 2016-07-19 12:56 | HOSPPROG ---
Hospitalist Progress Note Assessment/Plan: Alcohol withdrawal - CIWA 15 overnight, off precedex. -cont scheduled Librium -cont prn ativan Depression - pt made suicidal statements to RN. plan for TLC eval once medically clear -resume prozac, which he's been on in the past Full code DVT PPLX - Lovenox Dispo - cont inpt, transfer to med surg Subjective: Pt doing a bit better, but still mildly tremulous. He does endorse feeling depression and has had thoughts of suicide, but states, "I'm too chicken to go through with anything". Denies active suicidality. No fevers. No hallucinations. Objective: Vital Signs Temp Pulse Resp BP Pulse Ox 36.6 C 79 19 108/77 98 07/18/16 16:00 07/19/16 12:00 07/19/16 12:00 07/19/16 12:00 07/19/16 12:00 Laboratory Results 07/17/16 05:15 07/19/16 05:15 07/18/16 07/19/16 07/20/16 05:59 05:59 05:59 Intake Total 3315 3176 Output Total 1350 950 Balance 1965 2226 PT 13.3 SEC (12.0-15.0) 07/17/16 05:15 INR 1.02 (0.83-1.16) 07/17/16 05:15 - Physical Exam Constitutional: no apparent distress Eyes: PERRL Ears, Nose, Mouth, Throat: moist mucous membranes Cardiovascular: regular rate and rhythym Respiratory: no respiratory distress Gastrointestinal: normoactive bowel sounds, soft, non-tender abdomen Skin: warm Musculoskeletal: full muscle strength Neurologic: other (mildly tremulous) Psychiatric: interacting appropriately ICD10 Worksheet Patient Problems: Problems Problem Status Onset Alcohol withdrawal Acute Alcohol withdrawal Acute Rib fracture Acute
[2016-07-19] MEDS: LORazepam 2 MG/ML INJ IVP PRN (14:39)
[2016-07-19 19:34] LABS: POTASSIUM 4.3 mEq/L (3.5-5.2)
[2016-07-20 05:15] LABS: MAGNESIUM 1.5 mg/dL (1.6-2.3); POTASSIUM 4.1 mEq/L (3.5-5.2)
[2016-07-20] MEDS ORDERED: MAGNESIUM SULF 1 GM/DEXTROSE 100 ML IV ONE (07:45)
[2016-07-20 08:38] VITALS: RESP 18
[2016-07-20] MEDS: chlordiazePOXIDE 25 MG CAP PO SCH (09:44)
[2016-07-20] MEDS: FAMOTIDINE 20 MG TAB PO SCH (09:44)
[2016-07-20] MEDS: FOLIC ACID 1 MG TAB PO SCH (09:44)
[2016-07-20] MEDS: ENOXAPARIN 40 MG/0.4 ML SYR SC SCH (09:44)
[2016-07-20] MEDS: THIAMINE HCL 100 MG TAB PO SCH (09:44)
[2016-07-20] MEDS: FLUoxetine 20 MG CAP PO SCH (09:44)
[2016-07-20] MEDS: MULTIVITAMINS 1 EACH TAB PO SCH (09:45)
--- NOTE | 2016-07-20 14:00 | PDINTPN ---
Furniture Dipper Progress Note Assessment/Plan: Assessment: Alcohol withdrawal: On scheduled Librium and p.r.n. Ativan. Was back on Precedex last night for increased agitation. Possibly he has a component of ? Chronic alcohol abuse. He has been in the ED approximately 12 times over the last 6 or 7 years for alcohol intoxication/withdrawal Depression, possible/occasional suicidal ideations. Denies active suicide ideations at this point Metabolic: No issues currently identified. On replacement protocols. DVT prophylaxis: Enoxaparin. GI prophylaxis: Pepcid Plan: Medically clear at this point. He requires only low-dose Librium. This could be used p.r.n.. Okay for TLC evaluation and appropriate disposition. 20 minutes of critical care time spent directly with the patient during this visit. Discussed with the hospitalist, nursing and the ICU multi disciplinary team. Subjective: Feels better. Still somewhat lethargic and tremulous, but ambulatory. Wants to go home. On no Precedex since yesterday, no p.r.n. Ativan since last night Objective: Vital Signs Temp Pulse Resp BP Pulse Ox 36.8 C 109 H 18 132/86 H 97 07/20/16 08:36 07/20/16 08:36 07/20/16 08:36 07/20/16 08:36 07/20/16 08:36 Laboratory Results 07/17/16 05:15 07/20/16 04:45 07/19/16 07/20/16 07/21/16 05:59 05:59 05:59 Intake Total 3176 1743 Output Total 950 2700 Balance 2226 -957 PT 13.3 SEC (12.0-15.0) 07/17/16 05:15 INR 1.02 (0.83-1.16) 07/17/16 05:15 Laboratory Tests 07/20/16 07/20/16 04:45 04:45 Ionized Calcium 1.20 Phosphorus 3.9 Magnesium 1.5 L Physical Exam - Physical Exam General Appearance: other (Mildly sedated, arouses, appropriate responses) EENT: PERRL/EOMI, other Neck: normal inspection (On room air) Respiratory: lungs clear, normal breath sounds Cardiac/Chest: regular rate, rhythm Abdomen: normal bowel sounds, non-tender, soft Skin: normal color, warm/dry Neuro/Psych: no motor/sensory deficits (Mild tremor), No cognition abnormalities ICD10 Worksheet Patient Problems: Problems Problem Status Onset Alcohol withdrawal Acute Rib fracture Acute Alcohol withdrawal Acute
[2016-07-20 14:24] VITALS: BP 130/84; PULSE 96; TEMP 97.9; O2SAT 96
--- NOTE | 2016-07-20 20:47 | GDS ---
[f rep st] DISCHARGE SUMMARY DISCHARGE DIAGNOSES: 1. Alcohol withdrawal. 2. Depression. CONSULTANTS: Dr. Luis Mcneil, make up operator helper. HISTORY: See details for the history and physical dated July 17, 2016. In brief, the patient is a [age]-year-old male, who has had multiple hospitalizations for his chronic alcohol use, who presents to the emergency department from the [facility] in acute alcohol withdrawal. He was admitted to the hospital for further management. HOSPITAL COURSE: The patient was admitted to the ICU, placed on CIWA protocol, receiving p.r.n. Ati van. He developed severe withdrawal and required a Precedex drip in the intensive care unit. We we re able to wean the Precedex drip off, and he was continued on scheduled Librium. His withdrawal sy mptoms abated, and he is medically cleared for Behavioral Health evaluation. He did make some passi ve suicidal gestures to the staff, and was evaluated by the behavioral health team and [facility]. They deemed him safe for discharge and not actively suicidal. He should have close foll owup with [facility] for ongoing management of his depression, and to help maintain his sobriety plan. DISPOSITION: Patient is discharged home in stable condition. FOLLOWUP: 1. Primary care. 2. [facility]. DISCHARGE MEDICATIONS: Please see [facility] for complete updated outpatient medication list. New me dications on discharge include Prozac 20 mg p.o. daily, #30, no refills, folic acid 1 mg p.o. daily, multivitamins 1 mg p.o. daily, Thiamine 100 mg p.o. daily, and Librium 25 mg p.o. twice daily for 2 days and then off. /[id number]/MODL
== END 2016-07-20 14:24 | disposition home or self-care (01) | DRG 897 ==
LOC: EDUNIT# → OBSVTOIN 07-17 00:31 → F2N 07-17 00:50
PROVIDERS: ADMIT Internal Medicine; ATTEND Internal Medicine
DX: F10.230 Alcohol dependence with withdrawal, uncomplicated (principal); F32.9 Major depressive disorder, single episode, unspecified; Z72.0 Tobacco use
CPT/HCPCS: 80307; 96374; 97116-GP; 97161-GP; 97530-GP; G0480; J0610; J1650; J2060; J2405; J3411; J3475

== ENCOUNTER 2017-12-14 11:31 | Observation (INO) | payer SELFPAY ==
[2017-12-14] MEDS ORDERED: LORazepam 1 MG TAB PO PRN (11:56)
--- NOTE | 2017-12-14 11:56 | EDPHY ---
H & P Stated Complaint: "ETOH W/D" N/V, tremors Time Seen by Provider: 12/14/17 11:56 HPI/ROS: CHIEF COMPLAINT: Alcohol withdrawal, abdominal pain and vomiting HISTORY OF PRESENT ILLNESS: The patient presents the ED with several days of abdominal pain and vomiting. He also reports that he is in severe alcohol withdrawal. The patient is a heavy alcoholic. He has continued to have alcohol over the past several days however is continued to be tremulous, vomiting and restless. The patient denies any fever, cough or congestion. The patient does complain of mild mid abdominal pain. The patient denies any melena or hematemesis. The patient currently takes Prozac as a solitary medication. REVIEW OF SYSTEMS: A comprehensive 10 point review of systems is otherwise negative aside from elements mentioned in the history of present illness. Source: Patient - Personal History Tetanus Vaccine Date: 2009 - Medical/Surgical History Hx Asthma: No Hx Chronic Respiratory Disease: No Hx Diabetes: No Hx Cardiac Disease: No Hx Renal Disease: No Hx Cirrhosis: No Hx Alcoholism: Yes Hx HIV/AIDS: No Hx Splenectomy or Spleen Trauma: No Other PMH: depression, ETOH abuse, hypertension, withdrawl SZ's, kidney stones - Social History Smoking Status: Light smoker - Physical Exam Exam: General Appearance: Thin male, restless Eyes: Pupils equal and round no pallor or injection ENT, Mouth: Dry mucous membranes Respiratory: There are no retractions, lungs are clear to auscultation Cardiovascular: Tachycardic Gastrointestinal: Mild mid abdominal tenderness Neurological: 5/5 strength all 4 extremities Skin: Warm and dry, no rashes Musculoskeletal: Neck is supple nontender Extremities: symmetrical, full range of motion Psychiatric: Patient is oriented X 3, there is no agitation, no hallucinations Constitutional: Initial Vital Signs Temperature (C) 36.7 C 12/14/17 11:40 Heart Rate 133 H 12/14/17 11:40 Respiratory Rate 22 H 12/14/17 11:40 Blood Pressure 158/102 H 12/14/17 11:40 O2 Sat (%) 98 12/14/17 11:40 O2 Delivery Mode Room Air Allergies/Adverse Reactions: Penicillins Allergy (Unknown, Verified 07/16/16 06:12) Home Medications: Medication Instructions Recorded Prozac 10 MG (*) 12/14/17 Medical Decision Making ED Course/Re-evaluation: The patient presents to the ED with moderate to severe alcohol withdrawal. The patient had an IV established. He received IV Zofran, Ativan per the CIWA treatment protocol and IV fluids. His initial CIWA was 19. He received 4 mg of IV Ativan and IV fluids. The patient's lipase is noted to be normal. Re-evaluated the patient at 1:15 p.m.: CIWA is currently 4. The patient is given additional 2 mg of IV Ativan. The patient will be admitted to medical-surgical for further treatment of his mild alcohol withdrawal. Consultation is made with the hospitalist service at 1:15 p.m.. I spoke with the hospitalist service and he will be admitted by Dr. Stanford Cota. The patient was noted to be dehydrated. He received 2 L of normal saline. Repeat abdominal examination at 1:30 p.m. continues to be reassuring. Differential Diagnosis: Differential diagnosis considered includes alcohol withdrawal, delirium tremens , pancreatitis, dehydration, metabolic derangement - Data Points Laboratory Results: Laboratory Results 12/14/17 11:59 12/14/17 11:59 18 18 11:59 11:59 WBC 12.43 10^3/uL H 10^3/uL (3.80-9.50) RBC 4.77 10^6/uL 10^6/uL (4.40-6.38) Hgb 14.6 g/dL g/dL (13.7-17.5) Hct 41.7 % % (40.0-51.0) MCV 87.4 fL fL (81.5-99.8) MCH 30.6 pg pg (27.9-34.1) MCHC 35.0 g/dL g/dL (32.4-36.7) RDW 14.9 % % (11.5-15.2) Plt Count 386 10^3/uL 10^3/uL (150-400) MPV 8.6 fL L fL (8.7-11.7) Neut % (Auto) 90.9 % H % (39.3-74.2) Lymph % (Auto) 5.3 % L % (15.0-45.0) [place] % (Auto) 3.1 % L % (4.5-13.0) Eos % (Auto) 0.0 % L % (0.6-7.6) Baso % (Auto) 0.1 % L % (0.3-1.7) Nucleat RBC Rel Count 0.0 % % (0.0-0.2) Absolute Neuts (auto) 11.30 10^3/uL H 10^3/uL (1.70-6.50) Absolute Lymphs (auto) 0.66 10^3/uL L 10^3/uL (1.00-3.00) Absolute Monos (auto) 0.39 10^3/uL 10^3/uL (0.30-0.80) Absolute Eos (auto) 0.00 10^3/uL L 10^3/uL (0.03-0.40) Absolute Basos (auto) 0.01 10^3/uL L 10^3/uL (0.02-0.10) Absolute Nucleated RBC 0.00 10^3/uL 10^3/uL (0-0.01) Immature Gran % 0.6 % % (0.0-1.1) Immature Gran # 0.07 10^3/uL 10^3/uL (0.00-0.10) Sodium 135 mEq/L mEq/L (135-145) Potassium 4.3 mEq/L mEq/L (3.3-5.0) Chloride 93 mEq/L L mEq/L (97-110) Carbon Dioxide 12 mEq/l L mEq/l (22-31) Anion Gap 30 mEq/L H mEq/L (6-14) BUN 24 mg/dL H mg/dL (7-23) Creatinine 1.1 mg/dL mg/dL (0.7-1.3) Estimated GFR > 60 Glucose 152 mg/dL H mg/dL (70-100) Calcium 9.8 mg/dL mg/dL (8.5-10.4) Total Bilirubin 1.5 mg/dL H mg/dL (0.1-1.4) Conjugated Bilirubin 0.3 mg/dL mg/dL (0.0-0.5) Unconjugated Bilirubin 1.2 mg/dL H mg/dL (0.0-1.1) AST 39 IU/L IU/L (17-59) ALT 22 IU/L IU/L (21-72) Alkaline Phosphatase 98 IU/L IU/L (38-126) Total Protein 7.8 g/dL g/dL (6.3-8.2) Albumin 4.9 g/dL g/dL (3.5-5.0) Lipase 91 IU/L IU/L (23-300) Medications Given: Lorazepam (Ativan Injection) 0 mg IVP Q1H PRN; Protocol PRN Reason: Alcohol Withdrawal w/IV access Stop: 12/14/17 23:56 Last Admin: 12/14/17 13:10 Dose: 2 mg Discontinued Medications Sodium Chloride (Ns) 1,000 mls @ 0 mls/hr IV EDNOW ONE; Wide Open PRN Reason: Protocol Stop: 12/14/17 12:02 Last Admin: 12/14/17 12:15 Dose: 1,000 mls Ondansetron HCl (Zofran) 4 mg IVP EDNOW ONE Stop: 12/14/17 12:02 Last Admin: 12/14/17 12:08 Dose: 4 mg Departure - Departure Disposition: [facility] Inpatient Acute Clinical Impression: Alcohol withdrawal Condition: Good Referrals: NONE *PRIMARY CARE P,. [Primary Care Provider] - As per Instructions
[2017-12-14] MEDS ORDERED: NS 1,000 ML IV ONE (12:01)
[2017-12-14] MEDS ORDERED: ONDANSETRON 4 MG/2 ML VIAL IVP ONE (12:01)
[2017-12-14] MEDS: LORazepam 2 MG/ML INJ IVP PRN ×5 (12:08→21:12)
[2017-12-14 12:14] LABS: PLATELET COUNT 386 10^3/uL (150-400)
[2017-12-14] MEDS ORDERED: BACLOFEN 10 MG TAB PO ONE (15:04)
[2017-12-14] MEDS ORDERED: ONDANSETRON DISINTEGRATING 4 MG TAB PO PRN (15:08)
[2017-12-14] MEDS ORDERED: ACETAMINOPHEN 325 MG TAB PO PRN (15:08)
[2017-12-14] MEDS ORDERED: FLUMAZENIL 0.5 MG/5 ML MDV IVP PRN (15:08)
[2017-12-14] MEDS ORDERED: ONDANSETRON 4 MG/2 ML VIAL IVP PRN (15:08)
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
[2017-12-14] MEDS: NS 1,000 ML IV SCH (16:32)
[2017-12-14] MEDS ORDERED: hydrALAZINE 10 MG TAB PO ONE (17:15)
[2017-12-14] MEDS: FLUoxetine 20 MG CAP PO SCH (21:12)
[2017-12-15] MEDS: NS 1,000 ML IV SCH (02:50)
[2017-12-15] MEDS: LORazepam 2 MG/ML INJ IVP PRN ×3 (05:12→12:08)
[2017-12-15 05:39] LABS: PLATELET COUNT 316 10^3/uL (150-400)
[2017-12-15] MEDS: FLUoxetine 20 MG CAP PO SCH (08:59)
[2017-12-15] MEDS ORDERED: THIAMINE HCL 500 MG in NS 100 ML IV SCH (09:00)
[2017-12-15 11:21] VITALS: BP 143/89
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
[2017-12-17] MEDS ORDERED: THIAMINE HCL 100 MG TAB PO SCH (15:08)
== END 2017-12-15 13:11 | disposition home or self-care (01) ==
LOC: F3E 15:52
PROVIDERS: ADMIT Student in an Organized Health Care Education/Training Program; ATTEND Student in an Organized Health Care Education/Training Program
DX: F10.239 Alcohol dependence with withdrawal, unspecified (principal); I10 Essential (primary) hypertension; F32.9 Major depressive disorder, single episode, unspecified; E87.2 Acidosis; F17.200 Nicotine dependence, unspecified, uncomplicated
CPT/HCPCS: 96374; G0378; J2060; J2405; J3411